=== PATIENT | female | born 1995 | race Caucasian/White ===

== ENCOUNTER 2017-03-03 14:50 | Emergency (ER) | payer OTHER, MEDICAID ==
[2017-03-03] MEDS: ACETAMINOPHEN 500 MG TAB PO (18:28)
[2017-03-03] MEDS: IBUPROFEN 200 MG TAB PO (18:28)
[2017-03-03] MEDS: ONDANSETRON (ODT) 4 MG TAB ODT (18:28)
[2017-03-03 18:59] LABS: ADD UMIC YES; UR ASCORBIC ACID NEGATIVE (NEGATIVE); UR BILIRUBIN (Dip) NEGATIVE (NEGATIVE); UR BLOOD (Dip) 1+ mg/dL (NEGATIVE); UR CLARITY SLIGHTLY CLOUDY (CLEAR); UR COLOR STRAW (YELLOW); UR GLUCOSE (Dip) NEGATIVE (NEGATIVE); UR KETONES (Dip) NEGATIVE (NEGATIVE); UR LEUKOCYTE ESTERASE (Dip) 2+ Leu/ul (NEGATIVE); UR NITRITE (Dip) NEGATIVE (NEGATIVE); UR RBC 2 /HPF (0-5); UR SPECIFIC GRAVITY (Dip) 1.005 (1.003-1.030); UR SQUAMOUS EPITHELIAL CELL FEW /HPF (FEW); UR TOTAL PROTEIN (Dip) NEGATIVE (NEGATIVE); UR UROBILINOGEN (Dip) NEGATIVE (NEGATIVE); UR WBC 1 /HPF (0-5)
[2017-03-03] MEDS ORDERED: CEFTRIAXONE 1 GM INJ IM (19:30)
[2017-03-03] MEDS: CEFTRIAXONE 1 GM/50 ML (PMX) 50 ML IVPB (19:41)
[2017-03-03] MEDS: SOD CHLORIDE 0.9% 1,000 ML IV (19:42)
== END 2017-03-03 20:20 | disposition home or self-care (01) ==
LOC: FTE 14:50
DX: R05 Cough (principal); R50.9 Fever, unspecified
CPT/HCPCS: 71045; 81001; 87086; 87400; 96374; 99284-25